=== PATIENT | female | born 1985 | race Caucasian/White ===

== ENCOUNTER 2016-11-19 17:38 | Outpatient (CLI) | payer OTHER | END 2016-11-19 20:42 | disposition home or self-care (01) | LOC: GENOP 17:38 | DX: O76 Abnormality in fetal heart rate and rhythm complicating labor and delivery (principal); F32.9 Major depressive disorder, single episode, unspecified; F41.9 Anxiety disorder, unspecified; Z3A.36 36 weeks gestation of pregnancy | CPT/HCPCS: J7120 ==

== ENCOUNTER 2016-12-07 22:47 | Inpatient (IN) | payer OTHER ==
[~2016-12-07] VITALS: Ht 170.2 cm; Wt 97.1 kg
[2016-12-07 23:48] LABS: HEMOGLOBIN 13.7 gm/dl (12.3-15.3); RED BLOOD COUNT 4.38 M/UL (4.00-5.10); WHITE BLOOD COUNT 15.9 K/UL (4.5-11.0)
[2016-12-09 03:22] LABS: HEMOGLOBIN 11.7 gm/dl (12.3-15.3)
[2016-12-10] MEDS ORDERED: IBUPROFEN600 MG PO (09:58)
[2016-12-10] MEDS ORDERED: COLACE 100MG C100 MG PO (09:58)
[2016-12-10] MEDS ORDERED: NORCO 5-325 TA1 EACH PO (10:00)
[2016-12-10] MEDS ORDERED: TUCKS1 EACH TP (10:57)
== END 2016-12-10 17:41 | disposition home or self-care (01) | DRG 775 ==
LOC: GENOP 22:47 → OB 12-08 00:21
PROVIDERS: ADMIT Obstetrics & Gynecology
PROC: 10E0XZZ Delivery of Products of Conception, External Approach (ICD-10-PCS; principal; 2016-12-08)
PROC: 0UQMXZZ Repair Vulva, External Approach (ICD-10-PCS; 2016-12-08)
PROC: 3E0234Z Introduction of Serum, Toxoid and Vaccine into Muscle, Percutaneous Approach (ICD-10-PCS; 2016-12-09)
DX: O41.1230 Chorioamnionitis, third trimester, not applicable or unspecified (principal); O70.0 First degree perineal laceration during delivery; Z3A.39 39 weeks gestation of pregnancy; Z37.0 Single live birth; O99.820 Streptococcus B carrier state complicating pregnancy; Z23 Encounter for immunization
CPT/HCPCS: 36415; 51702; 82800; 85014; 85018; 85025; 90715; J0290; J1580; J2590; J2795; J3010; J3430; J7050; J7120